=== PATIENT | female | born 1975 | race Caucasian/White ===

== ENCOUNTER 2021-11-20 13:00 | Emergency (ER) | payer MEDICARE ==
[~2021-11-20] VITALS: Ht 162.6 cm; Wt 104.3 kg
[2021-11-20 13:02] VITALS: BP 142/89
[2021-11-20] MEDS ORDERED: ACETAMINOPHEN 500 MG TABLET ONE (13:44)
[2021-11-20] MEDS ORDERED: IBUPROFEN 800 MG TAB ONE (13:44)
[2021-11-20 13:51] LABS: BASOPHILS % (AUTO) 0.6 % (0.0-5.0); EOSINOPHILS % (AUTO) 8.9 % (0.0-8.0); HEMATOCRIT 41.8 % (36-48); LYMPHOCYTES % (AUTO) 9.9 % (21.0-51.0); MEAN CORPUSCULAR HEMOGLOBIN 28.9 pg (27.0-33.0); MEAN CORPUSCULAR HGB CONC 34.2 g/dL (32.0-36.0); MEAN CORPUSCULAR VOLUME 84.6 fL (79-99); NEUTROPHILS % (AUTO) 65.3 % (40.0-77.0); PLATELET COUNT (AUTO) 223 K/uL (130-400); RED BLOOD CELL COUNT(AUTO) 4.94 MIL/uL (4.00-5.50); RED CELL DISTRIBUTION WIDTH 13.2 % (11.0-15.5); WHITE BLOOD COUNT (AUTO) 6.7 K/uL (4.8-10.8)
[2021-11-20] MEDS ORDERED: IBUPROFEN 800 MG TAB PO ONE (14:00)
[2021-11-20] MEDS ORDERED: ACETAMINOPHEN 500 MG TABLET PO ONE (14:00)
[2021-11-20 14:09] LABS: ALBUMIN 4.3 g/dL (3.5-5.0); CREATININE 1.2 mg/dL (0.5-1.5); POTASSIUM 3.7 mmol/L (3.5-5.1); TOTAL PROTEIN, SERUM 8.3 g/dL (6.0-8.3)
[2021-11-20] MEDS ORDERED: NIRM1TAB PO (14:19)
[2021-11-20] MEDS ORDERED: D-ME1POW16 PO (14:19)
[2021-11-20 14:23] LABS: APPEARANCE,URINE CLEAR (CLEAR); BILIRUBIN,URINE SMALL (NEGATIVE); COLOR,URINE YELLOW (YELLOW); GLUCOSE, URINE (UA) NEGATIVE (NEGATIVE); KETONES,URINE 15 mg/dL (NEGATIVE); LEUKOCYTE ESTERASE ,URINE NEGATIVE (NEGATIVE); NITRATE,URINE NEGATIVE (NEGATIVE); OCCULT BLOOD,URINE NEGATIVE (NEGATIVE); PROTEIN,URINE NEGATIVE (NEGATIVE); UROBILINOGEN,URINE 0.2 mg/dL (0.2-1.0)
[2021-11-20 14:41] LABS: INR 0.97 (0.85-1.15); PROTHROMBIN TIME 10.6 SEC (9.6-11.6)
[2021-11-20 14:43] LABS: PARTIAL THROMBOPLASTIN TIME 34.5 SEC (26.3-35.5)
[2021-11-20 14:46] LABS: BACTERIA,URINE Few /HPF (None Seen); RBC,URINE None Seen /HPF (0-1); SQUAMOUS EPITHELIAL CELL,UR 0-2 /HPF (0-2); WBC,URINE 0-1 /HPF (0-1)
== END 2021-11-20 14:35 | disposition home or self-care (01) ==
LOC: EDH 13:00
DX: U07.1 COVID-19 (principal); J06.9 Acute upper respiratory infection, unspecified; G35 Multiple sclerosis; Z79.1 Long term (current) use of non-steroidal anti-inflammatories (NSAID)
CPT/HCPCS: 99283; 87635; 82550; 84484; 80053; 85025; 85610; 85730; 87040 ×2; 87088; 87804 ×2; 83605; 81001; 36415; C9803

== ENCOUNTER 2024-01-17 04:34 | Inpatient (IN) | payer MEDICARE ==
[~2024-01-17] VITALS: Ht 162.6 cm; Wt 106.8 kg
[~2024-01-17 04:34] MED LIST: D-ME1POW16 PO; NIRM1TAB PO
[2024-01-17 05:06] LABS: BASOPHILS # (AUTO) 0.09 K/uL (0.00-0.20); BASOPHILS % (AUTO) 0.7 % (0.0-5.0); EOSINOPHILS # (AUTO) 0.21 K/uL (0.00-0.70); EOSINOPHILS % (AUTO) 1.6 % (0.0-8.0); HEMATOCRIT 45.2 % (36-48); IMMATURE GRANULOCYTE ABSOLUTE 0.05 K/uL (0-1); LYMPHOCYTES # (AUTO) 2.2 K/uL (1.0-4.8); MEAN CORPUSCULAR HEMOGLOBIN 28.9 pg (27.0-33.0); MEAN CORPUSCULAR HGB CONC 33.2 g/dL (32.0-36.0); MEAN CORPUSCULAR VOLUME 87.1 fL (79-99); MONOCYTES # (AUTO) 0.7 K/uL (0.1-1.0); NEUTROPHILS # (AUTO) 10.3 K/uL (1.8-7.7); NEUTROPHILS % (AUTO) 76.3 % (40.0-77.0); PLATELET COUNT (AUTO) 346 K/uL (130-400); RED BLOOD CELL COUNT(AUTO) 5.19 MIL/uL (4.00-5.50); RED CELL DISTRIBUTION WIDTH 13.6 % (11.0-15.5); WHITE BLOOD COUNT (AUTO) 13.5 K/uL (4.8-10.8)
[2024-01-17 05:07] LABS: APPEARANCE,URINE CLEAR (CLEAR); BILIRUBIN,URINE NEGATIVE (NEGATIVE); COLOR,URINE LIGHT-YELLOW (YELLOW); GLUCOSE, URINE (UA) NEGATIVE (NEGATIVE); KETONES,URINE NEGATIVE (NEGATIVE); LEUKOCYTE ESTERASE ,URINE NEGATIVE Leu/uL (NEGATIVE); NITRATE,URINE NEGATIVE (NEGATIVE); OCCULT BLOOD,URINE NEGATIVE (NEGATIVE); PH,URINE 5.5 (5.0-8.0); PROTEIN,URINE NEGATIVE (NEGATIVE); UROBILINOGEN,URINE 0.2 mg/dL (0.2-1.0)
[2024-01-17] MEDS: ondanSETRON 4MG INJ IVP ONE (05:07)
[2024-01-17 05:11] LABS: ADD UA MICROSCOPIC NO
[2024-01-17 05:14] LABS: POTASSIUM 4.4 mmol/L (3.5-5.1)
[2024-01-17] MEDS: hydroMORPHone 1 MG INJ IVP ONE (06:15)
[2024-01-17] MEDS: ketOROlac 15MG/ML VIAL (15MG/ML) IV ONE (06:15)
[2024-01-17] MEDS ORDERED: IOHEXOL-350 75 ML VIAL IV ONE (06:16)
[2024-01-17 06:18] LABS: ALBUMIN 4.3 g/dL (3.5-5.0); BILIRUBIN,DIRECT 0.1 mg/dL (0.0-0.3); BILIRUBIN,TOTAL 0.4 mg/dL (0.2-1.0); TOTAL PROTEIN, SERUM 8.3 g/dL (6.0-8.3)
[2024-01-17] MEDS: 0.9%NACL 1000ML 1,000 ML IV ONE (06:19)
[2024-01-17] MEDS: ceFEPime HCL 1 GM VIAL IVPB SCH ×2 (07:25→18:51)
[2024-01-17] MEDS ORDERED: MAGNESIUM 2GM PREMIX 50ML 50 ML IV PRN (09:30)
[2024-01-17] MEDS: 0.9%NACL 1000ML 1,000 ML IV SCH ×2 (09:30→10:07)
[2024-01-17] MEDS ORDERED: hydrALAZine 20MG/ML VIAL IV PRN (09:30)
[2024-01-17] MEDS ORDERED: acetaMINOPHEN 325 MG TAB PO PRN ×3 (09:30)
[2024-01-17] MEDS ORDERED: PoTASSium chloRIDE 20MEQ ER 20 MEQ ERTAB PO PRN (09:30)
[2024-01-17] MEDS ORDERED: guaiFENesin-DM 200/20MG 10ML PO PRN (09:30)
[2024-01-17] MEDS ORDERED: GLUCAGON 1MG KIT 1 MG ML IM PRN (09:30)
[2024-01-17] MEDS ORDERED: FAMOTIDINE 20MG VIAL IV PRN (09:30)
[2024-01-17] MEDS ORDERED: NITROGLYCERIN 0.4 MG SL TAB SL PRN (09:30)
[2024-01-17] MEDS ORDERED: DiphenhydrAMINE HCL 50 MG/ML VIAL IV PRN (09:30)
[2024-01-17] MEDS ORDERED: PoTASSium chloRIDE 10MEQ/100ML 100 ML IV PRN (09:30)
[2024-01-17] MEDS ORDERED: PoTASSium chl 10% ELIXIR 20MEQ 20 MEQ/15 ML UDCUP PO PRN (09:30)
[2024-01-17] MEDS ORDERED: LACTULOSE 20 GM/30 ML UDCUP PO PRN (09:30)
[2024-01-17] MEDS ORDERED: DEXTROSE 50%-WATER 50 ML DISP.SYRIN IV PRN (09:30)
[2024-01-17] MEDS ORDERED: ondanSETRON 4MG INJ IV PRN (09:30)
[2024-01-17 09:40] VITALS: BP 111/71; PULSE 62; RESP 18; TEMP 97.8
[2024-01-17] MEDS: oxyCODONE/aceTAMIN 5/325MG TAB PO PRN (10:03)
[2024-01-17] MEDS: INSULIN humuLIN R 100 UNIT/ML 3ML SQ SCH (11:30)
[2024-01-17 12:00] VITALS: BP 93/51; PULSE 50; RESP 18; TEMP 98
[2024-01-17] MEDS: ketOROlac 15MG/ML VIAL (15MG/ML) IV PRN (15:05)
[2024-01-17 16:00] VITALS: BP 98/50; PULSE 58; RESP 16; TEMP 98
[2024-01-17 20:00] VITALS: BP 103/62; PULSE 50; RESP 18; TEMP 97.8; O2SAT 96
[2024-01-17] MEDS: FAMOTIDINE 20MG VIAL IV SCH (20:45)
[2024-01-17] MEDS: HEParin 5,000 UNIT VIAL SQ SCH (20:46)
[2024-01-18] VITALS (9 sets, daily range): BP systolic 92–140; BP diastolic 50–81; PULSE 50–78; RESP 17–21; TEMP 97.8–98.8; O2SAT 96
[2024-01-18 05:35] LABS: BASOPHILS # (AUTO) 0.04 K/uL (0.00-0.20); BASOPHILS % (AUTO) 0.6 % (0.0-5.0); EOSINOPHILS # (AUTO) 0.16 K/uL (0.00-0.70); EOSINOPHILS % (AUTO) 2.3 % (0.0-8.0); HEMATOCRIT 38.1 % (36-48); IMMATURE GRANULOCYTE ABSOLUTE 0.02 K/uL (0-1); LYMPHOCYTES # (AUTO) 2.5 K/uL (1.0-4.8); LYMPHOCYTES % (AUTO) 35.5 % (21.0-51.0); MEAN CORPUSCULAR HEMOGLOBIN 29.6 pg (27.0-33.0); MEAN CORPUSCULAR HGB CONC 33.1 g/dL (32.0-36.0); MEAN CORPUSCULAR VOLUME 89.6 fL (79-99); MONOCYTES # (AUTO) 0.5 K/uL (0.1-1.0); MONOCYTES % (AUTO) 6.5 % (3.0-13.0); NEUTROPHILS # (AUTO) 3.8 K/uL (1.8-7.7); NEUTROPHILS % (AUTO) 54.8 % (40.0-77.0); PLATELET COUNT (AUTO) 198 K/uL (130-400); RED BLOOD CELL COUNT(AUTO) 4.25 MIL/uL (4.00-5.50); RED CELL DISTRIBUTION WIDTH 13.6 % (11.0-15.5); WHITE BLOOD COUNT (AUTO) 6.9 K/uL (4.8-10.8)
[2024-01-18 05:51] LABS: HEMOGLOBIN A1C 5.5 % (4.0-6.0)
[2024-01-18 05:58] LABS: ALBUMIN 2.9 g/dL (3.5-5.0); BILIRUBIN,DIRECT 0.1 mg/dL (0.0-0.3); BILIRUBIN,TOTAL 0.5 mg/dL (0.2-1.0); MAGNESIUM 1.9 mg/dL (1.80-2.40); POTASSIUM 3.6 mmol/L (3.5-5.1); TOTAL PROTEIN, SERUM 5.9 g/dL (6.0-8.3)
[2024-01-18] MEDS: MAGNESIUM 2GM PREMIX 50ML 50 ML IV PRN (06:39)
[2024-01-18] MEDS ORDERED: PoTASSium chloRIDE 10MEQ SR 10 MEQ/TAB TAB.SR.24H PO PRN (09:00)
[2024-01-18] MEDS ORDERED: PHARMACY COMMUNICATION MISC SCH (09:00)
[2024-01-18] MEDS: ceFEPime HCL 1 GM VIAL IVPB SCH (18:40)
[2024-01-19] VITALS (9 sets, daily range): BP systolic 111–154; BP diastolic 52–95; PULSE 56–62; RESP 17–20; TEMP 97.7–98.3; O2SAT 96
[2024-01-19 06:06] LABS: HEMATOCRIT 37.6 % (36-48); MEAN CORPUSCULAR HEMOGLOBIN 28.6 pg (27.0-33.0); MEAN CORPUSCULAR VOLUME 86.8 fL (79-99); RED BLOOD CELL COUNT(AUTO) 4.33 MIL/uL (4.00-5.50); RED CELL DISTRIBUTION WIDTH 13.3 % (11.0-15.5); WHITE BLOOD COUNT (AUTO) 7.7 K/uL (4.8-10.8)
[2024-01-19 06:09] LABS: CREATININE 0.9 mg/dL (0.5-1.0); POTASSIUM 4.1 mmol/L (3.5-5.1)
[2024-01-20] VITALS (18 sets, daily range): BP systolic 111–141; BP diastolic 56–82; PULSE 52–95; RESP 15–20; TEMP 97.6–98.4; O2SAT 96
[2024-01-20] MEDS: 0.9%NACL 1000ML 1,000 ML IV ONE (07:05)
[2024-01-20] MEDS ORDERED: proPOFol 10 MG/ML 20ML VIAL IV ONE (09:05)
[2024-01-20] MEDS ORDERED: PANT40TA PO (10:07)
[2024-01-20] MEDS: PANTOPrazole 40 MG TAB DR PO SCH (13:54)
== END 2024-01-20 15:40 | disposition home or self-care (01) | DRG 392 ==
LOC: EDH 04:34 → EDHIP 07:34 → 4AH 09:40
PROVIDERS: ADMIT Internal Medicine; ATTEND Internal Medicine
PROC: 0DB58ZX Excision of Esophagus, Via Natural or Artificial Opening Endoscopic, Diagnostic (ICD-10-PCS; principal; 2024-01-20)
PROC: 0DB68ZX Excision of Stomach, Via Natural or Artificial Opening Endoscopic, Diagnostic (ICD-10-PCS; 2024-01-20)
DX: K29.70 Gastritis, unspecified, without bleeding (principal); E87.1 Hypo-osmolality and hyponatremia; M79.3 Panniculitis, unspecified; K52.9 Noninfective gastroenteritis and colitis, unspecified; I10 Essential (primary) hypertension; G35 Multiple sclerosis; K80.20 Calculus of gallbladder without cholecystitis without obstruction; R73.9 Hyperglycemia, unspecified; E66.01 Morbid (severe) obesity due to excess calories; D72.829 Elevated white blood cell count, unspecified; K82.8 Other specified diseases of gallbladder; Z79.899 Other long term (current) drug therapy; Z80.41 Family history of malignant neoplasm of ovary; Z68.37 Body mass index [BMI] 37.0-37.9, adult; Z82.49 Family history of ischemic heart disease and other diseases of the circulatory system; Z83.3 Family history of diabetes mellitus; Z83.438 Family history of other disorder of lipoprotein metabolism and other lipidemia
CPT/HCPCS: 36415; 43239; 74177; 76705; 78226; 80048; 80076; 81003; 82550; 82948; 83036; 83605; 83690; 83735; 83880; 84145; 84484; 85025; 85027; 88305; 88312; 93005; 96365; 96375; A4606; A9537; G0378; J0692; J1171; J1644; J1885; J2405; J2704; J3475; J3490; J7030; Q9967; A4215; A4221; A4222; A4223; A4657; A4663; G8980-CI; G8983-CI

== ENCOUNTER 2024-02-07 06:48 | Day surgery (SDC) | payer MEDICARE ==
[2024-02-04 12:20] VITALS: BP 128/70; PULSE 60; RESP 18; TEMP 98.1
[2024-02-04 12:22] LABS: BASOPHILS # (AUTO) 0.07 K/uL (0.00-0.20); BASOPHILS % (AUTO) 0.8 % (0.0-5.0); EOSINOPHILS # (AUTO) 0.17 K/uL (0.00-0.70); HEMATOCRIT 44.8 % (36-48); IMMATURE GRANULOCYTE ABSOLUTE 0.03 K/uL (0-1); LYMPHOCYTES # (AUTO) 1.8 K/uL (1.0-4.8); LYMPHOCYTES % (AUTO) 21.2 % (21.0-51.0); MEAN CORPUSCULAR HEMOGLOBIN 29.4 pg (27.0-33.0); MEAN CORPUSCULAR HGB CONC 32.8 g/dL (32.0-36.0); MEAN CORPUSCULAR VOLUME 89.6 fL (79-99); MONOCYTES # (AUTO) 0.5 K/uL (0.1-1.0); NEUTROPHILS % (AUTO) 69.7 % (40.0-77.0); PLATELET COUNT (AUTO) 283 K/uL (130-400); RED CELL DISTRIBUTION WIDTH 13.5 % (11.0-15.5); WHITE BLOOD COUNT (AUTO) 8.6 K/uL (4.8-10.8)
[2024-02-04 12:37] LABS: CREATININE 0.9 mg/dL (0.5-1.0); POTASSIUM 4.4 mmol/L (3.5-5.1)
[~2024-02-07] VITALS: Ht 165.1 cm; Wt 107.0 kg
[2024-02-07] VITALS (18 sets, daily range): BP systolic 111–155; BP diastolic 54–91; PULSE 55–92; RESP 10–19; TEMP 97–98.1
[~2024-02-07 06:48] MED LIST changes: +CLON1TAB12 PO; -D-ME1POW16 PO; +GABA300C PO; -NIRM1TAB PO; +SERT100T PO; +TIZA2CAP PO; +TRAZ-187 PO
[2024-02-07] MEDS: ceFAZolin SODIUM 2 GM VIAL ONE (07:38)
[2024-02-07] MEDS: LACTATED RINGERS 1000ML 1,000 ML IV ONE (07:39)
[2024-02-07] MEDS ORDERED: proPOFol 10 MG/ML 20ML VIAL IV ONE ×3 (07:46→09:14)
[2024-02-07] MEDS ORDERED: LIDOCAINE PF 100MG/5ML (2%) SYRINGE 5ML ONE (07:46)
[2024-02-07] MEDS ORDERED: rocuRONium bROMide 10MG/1ML 5ML VL ONE (07:47)
[2024-02-07] MEDS ORDERED: dexaMETHasone SOD PHOSPHATE 10MG/ML 1ML VIAL ONE (07:47)
[2024-02-07] MEDS ORDERED: FENTanyl CITRate PF 50 MCG/1 ML 2ML VIAL ONE (07:47)
[2024-02-07] MEDS ORDERED: ondanSETRON 4MG INJ ONE (07:48)
[2024-02-07] MEDS ORDERED: NEOSTIGMINE METHYLSULFATE 1MG/ML IV ONE (07:48)
[2024-02-07] MEDS ORDERED: GLYCOPYRROLATE 0.2 MG/ML 5 ML VIAL ONE (07:48)
[2024-02-07 07:53] LABS: INR 0.97 (0.85-1.15); PROTHROMBIN TIME 10.5 SEC (9.6-11.6)
[2024-02-07 07:55] LABS: PARTIAL THROMBOPLASTIN TIME 27.7 SEC (26.3-35.5)
[2024-02-07] MEDS: BUPIvacaine/PF 0.5% 30ML VIAL ONE (08:47)
[2024-02-07] MEDS: BUPIvacaine HCL/EPINEPHrine/PF 0.25% 10ML VIAL IJ ONE (09:10)
[2024-02-07] MEDS: BUPIvacaine/PF 0.25% 30ML VIAL IJ ONE (09:25)
[2024-02-07] MEDS ORDERED: ketOROlac 30MG VIAL (30MG/ML) ONE (09:43)
[2024-02-07] MEDS: MEPERIDINE-PF 25 MG/ML SYG ONE ×2 (10:05→10:16)
[2024-02-07] MEDS: ibuPROFEN 800 MG TAB ONE (11:18)
== END 2024-02-07 11:45 | disposition home or self-care (01) ==
LOC: DAH 06:48
PROVIDERS: ATTEND Surgery
DX: K80.10 Calculus of gallbladder with chronic cholecystitis without obstruction (principal); I10 Essential (primary) hypertension; G35 Multiple sclerosis; Z79.01 Long term (current) use of anticoagulants; Z79.899 Other long term (current) drug therapy
CPT/HCPCS: 80048; 84703; 85025; 36415 ×2; 47562; 85610; 85730; 88304; A6260; A4663; J7030; J7120; J3010; J1100; J0665 ×2; J3490 ×3; J2003; J2704 ×3; J2405; J1885; J2710; J2175 ×2; J0690; C1769 ×3; A4649; A4215; A4223; A4222; A4221; A4600